=== PATIENT | male | born 2005 ===

== ENCOUNTER 2024-07-10 13:12 | Outpatient (REF) | payer MEDICAID, SELFPAY ==
--- OUTSIDE RECORDS SUMMARY | 2024-07-10 15:33 | XMS_ITS | Encounter Summary ---
Author Organization [facility] Address [address] [place] [address] Care Team Providers Care Order Control Clerk Blood Bank Name Role Phone Unavailable Primary Care Provider Unavailabl e Encounter Details Date Type Department Care Team (Latest Contact Info) Description 07/09/2024 Travel Social History Tobacco Use Types Packs/Day Years Used Date Smoking Tobacco: Never Smokeless Tobacco: Never Alcohol Use Standard Drinks/Week Comments Yes 0 (1 standard drink = 0.6 oz pur e alcohol) socially less than a year Alcohol Answer Date Recorded How often do you have a drink containing alcohol ? 0 07/09/2024 How many drinks containing a lcohol do you have on a typical day when you are drinking? 0 07/09/2024 How often do you have six or more drinks on one occasion? 0 07/09/2024 Depression Answer Date Recorded Patient Health Questionnaire-9 Score 2 07/09/2024 Patient Health Questionnaire-9 Score 2 07/09/2024 Last PHQ-9: Questionnaire Data Not on file 0 07/09/2024 Housing Stability Answer Date Recorded What is your housing situation today? I have tristianedgar borrego 07/09/[address] you li ve. Do you have problems with any of the following? None of the above 07/09/2024 Food Insecurity Answer Date Recorded Within the past 12 months, y ou worried that your food would run out before you got money to buy more: Never True 07/01/2024 Within the past 12 months,th e food you bought just didn't last and you didn't have enough money to get more: Never True Transportation Answer Date Recorded In the past 12 months, has l ack of transportation kept you from medical appts, meetings, work or from getting things needed for daily living? No 07/01/2024 Utilities Answer Date Recorded In the past 12 months, has t he electric, gas, oil or water company threatened to shut off services in your home? I am not sure 07/09/2024 Depression Answer Date Recorded Patient Health Questionnaire-2 Score 0 07/09/2024 Internet Access Answer Date Recorded Internet Access Q1 Yes 07/01/2024 Internet Access Q2 Not on file 07/01/2024 Sex and Gender Information Value Date Recorded Sex Assigned at Male 01/16/2022 10:33 AM EDT Legal Sex Male 10:33 AM EDT Gender Identity Male 01/16/2022 10:33 AM EDT Sexual Orientation Straight 01/16/2022 10 :33 AM EDT documented as of this encounter Plan of Treatment Not on file documented as of this encounter Visit Diagnoses Not on filedocumented in this encounter Additional Health Concerns Assessment Noted Time PHQ-9 Depression Total Score: 2 07/10/19 25 3:08 PM EDT documented as of this encounter
--- OUTSIDE RECORDS SUMMARY | 2024-07-10 15:33 | XMS_ITS | Encounter Summary ---
Author Organization [facility] Address [address] [place] [address] Care Team Providers Care Portfolio Architect Name Role Phone Unavailable Primary Care Provider Unavailabl e Reason for Visit * Reason Comments new patient Encounter Details Date Type Department Care Team (Late st Contact Info) Description 07/09/2024 2:00 PM EDT Office Visit [facility] [address] [place], [place] [id number] Marta Garber NP [address] [place] [address] Underweight (BMI < 18.5) (Primary Dx); Encounter for health-related screening; Screening examination for STI; Vitamin B 12 deficiency Social History Tobacco Use Types Packs/Day Years [...] is your housing situation today? I have tristian borrego 07/09/[address] you [...] AM EDT documented as of this encounter Last Filed Vital Signs Vital Sign Reading Time Taken Comments Blood Pressure 115/72 07/09/2024 2:21 PM EDT Pulse 103 07/09/2024 2:21 PM EDT Temperature 37.1 ??C (98.8 ??F) 07/09/2024 2:21 PM ED T Respiratory Rate 23 07/09/2024 2:21 PM EDT Oxygen Saturation 98% 07/09/2024 2:21 PM EDT Inhaled Oxygen Concentration - - Weight 58.3 kg (128 lb 9.6 oz) 07/09/2024 2:21 P M EDT Height 175.3 cm (5' 9 ) 07/09/2024 2:21 PM EDT Body Mass Index 18.99 07/09/2024 2:21 PM EDT documented in this encounter Plan of Treatment Scheduled Orders Name Type Priority Associated Diagnoses Orde r Schedule CBC auto differential Lab Routine Vitamin B 12 deficiency Expected: 07/09/2024 (Approximate), Expires: 07/09/2025 Vitamin B12/Folate, Serum Panel Lab Routine Vitamin B 12 deficiency Expected: 07/09/2024, Expires: 07/09/2025 Syphilis Screen Lab Routine Screening examination for STI Expected: 07/09/2024 (Approximate), Expires: 07/09/2025 Hepatitis B surface antigen, EIA Lab Routine Screening examination for STI Expected: 07/09/2024 (Approximate), Expires: 07/09/2025 Hepatitis B Surface Antibody, Qualitative Lab Routine Screening examination for STI Expected: 07/09/2024 (Approximate), Expires: 07/09/2025 Hepatitis B Core Antibody, Total Lab Routine Screening examination for STI Expected: 07/09/2024 (Approximate), Expires: 07/09/2025 Hepatitis C Antibody with Reflex to HCV, RNA, Quantitative, Real-Time PCR Lab Routine Screening examination for STI Expected: 07/09/2024 (Approximate), Expires: 07/09/2025 HIV-1/2 Antigen and Antibodies, Fourth Generation, with Reflexes Lab Routine Screening examination for STI Expected: 07/09/2024 (Approximate), Expires: 07/09/2025 Lipid Panel, Standard Lab Routine Encounter for health-related screening Expected: 07/09/2024 (Approximate), Expires: 07/09/2025 TSH W/Reflex to FT4 Lab Routine Underweight (BMI < 18.5) Expected: 07/09/2024 (Approximate), Expires: 07/09/2025 Basic Metabolic Panel Lab Routine Underweight (BMI < 18.5) Expected: 07/09/2024 (Approximate), Expires: 07/09/2025 documented as of this encounter Visit Diagnoses Diagnosis Underweight (BMI < 18.5)- Primary Encounter for health-related screening Screening examination for STI Vitamin B 12 deficiency Other B-complex deficiencies documented in this encounter Additional Health Concerns Assessment Noted Time PHQ-9 Depression Total Score: 2 07/10/19 25 3:08 PM EDT documented as of this encounter
--- OUTSIDE RECORDS SUMMARY | 2024-07-10 15:33 | XMS_ITS | Clinical Summary ---
Author Organization [facility] Address [address] [place] [address] [address] [place] [address] Care Team Providers Care Cia Agent Name Role Phone Unavailable Primary Care Provider Unavailabl e Allergies No known active allergies Medications Sodium Fluoride 1.1 % creamIndication s:Dental caries on smooth surface limited to enamel Kinder with a pea size amount of toothpaste morning and bedtime. Floss between teeth. Do not rinse. Spit out excess. 56 g 10 Active Additional Information Patient not taking.Reported on 10/30/2023 cyanocobalamin (Vitamin B-12) 100 MCG tablet Take 100 mcg by mouth in the morning. Active Active Problems Problem Noted Date Diagnosed Date Dental caries 01/12/2023 Dental abscess 01/12/2023 Encounters Date Type Department Care Team Description 07/09/2024 2:00 PM EDT Office Visit [address] [address] Marta Garber NP Underweight (BMI < 18.5) (Primary Dx); Encounter for health-related screening; Screening examination for STI; Vitamin B 12 deficiency 07/09/2024 Travel 07/01/2024 Patient Outreach [facility] [address] [place] [id number] Marta Garber NP Care Coordination (CHW outreach for SDOH housing search-LVM ) 07/01/2024 Patient Outreach [facility] [address] [place] [address] Marta Garber NP Pre-visit Planning (SDOH positive, Tobacco screening negative) 06/30/2024 Telephone [facility] [address] [place] [address] Kita Jacobo MA chart prep 05/30/2024 Population Health Risk Score [facility] ([facility]) Department [address] [place] [id number] Provider, Population Health Generic from Last 3 Months Immunizations Name Administration Dates Next Due DTaP 09/28/2008, 6,03/30/2005,01/24,2004 HPV 9-Valent 07/11/2017,09/29/2015 Hep A, ped/adol, 2 dose 03/28/2006,2005 Hep B, Adolescent or Pediatric 03/30/2005,2004,2004 HiB, unspecified 12/22/2005,01/24/2005 Hib (PRP-T) 2004 IPV 09/28/2008, 6,01/24/2005,11/24 Influenza injectable quadriv alent preservative free 06/09/2021 MMR 09/28/2008,2005 Meningococcal MCV4P [id number] 06/09/2021,09/29/19 16 Pneumococcal Conjugate PCV 13 12/22/2005 ,03/30/2005,01/24/2005,11/24 Tdap 09/29/2015 Varicella 09/28/2008,2005 Family History Medical History Relation Name Comments No Known Problems Brother Diabetes Father No Known Problems Mother No Known Problems Sister Relation Name Status Comments Brother Father Maternal Grandmother Mother Sister Social History Tobacco Use Types Packs/Day Years Used Date Smoking Tobacco: Never Smokeless Tobacco: Never Tobacco Cessation:Counseling Given: Not Answered Alcohol Use Standard Drinks/Week Comments Yes 0 [...] Orientation Straight 01/16/2022 10 :33 AM EDT Last Filed Vital Signs Vital Sign Reading [...] Mass Index 18.99 07/09/2024 2:21 PM EDT Plan of Treatment Health Maintenance Due Date Last Done Comments Chlamydia and Gonorrhea Screening 2004 Dental X-Ray: Full Mouth 2004 HIV Screening 2004 Hepatitis C Screening 2022 Dental Oral Exam 10/09/2022 04/10/2022 Dental Prophylaxis 10/09/2022 04/10/2022 COVID-19 Vaccine ( - season) 2023 Influenza Vaccine (#1) 2023 06/09/2021 Dental X-Ray: Bitewings 12/15/2023 12/13/2022 Alcohol/Substance Use Screening 07/09/2025 07/09/2024 Depression Screening 07/09/2025 07/09/2024, 07/10/19 Family Planning (PISQ) 07/09/2025 07/09/2024 SDOH Screening 07/09/2025 07/09/2024 Tobacco Screening 07/09/2025 07/09/2024 DTaP/Tdap/Td Vaccines (7 - Td or Tdap) 09/28/2025 09/29/2015, 09/28/2008, 12/22/2005, Additional history exists Zoster Vaccines (1 of 2) 2054 RSV Patients and Patients Aged 60 years or older (1 - 1-dose 75+ series) 09/22/2079 Hepatitis B Vaccines Completed 03/30/2005, 2004, 2004 HIB Vaccines Completed 12/22/2005, 10/2004, 2004 Pneumococcal Vaccine: Pediatrics (0 to 5 Years) and At-Risk Patients (6 to 49) Years) Completed 12/22/2005, 03/30/2005, 01/24/2005, Additional history exists Hepatitis A Vaccines Completed 03/28/2006, 09/22/19 06 IPV Vaccines Completed 09/28/2008, 03/19, 01/24/2005, Additional history exists MMR Vaccines Completed 09/28/2008, 2005 Varicella Vaccines Completed 09/28/2008, 2005 HPV Vaccines Completed 07/11/2017, 09/29/2015 Meningococcal Vaccine Completed 06/09/2021, 016 Fluoride Varnish Discontinued 04/10/2022 RSV under 20 months Aged Out No longe r eligible based on patient's age to complete this topic Rotavirus Vaccines Aged Out No longer eligible based on patient's age to complete this topic Procedures Procedure Name Priority Date/Time Associated Diagnosis Comments BITEWING - SINGLE RADIOGRAPHIC IMAGE Routine 12/13/2022 1:00 PM EDT Dental caries Dental abscess Full PROPHYLAXIS - ADULT Routine 023 2:30 PM EST PERIODIC ORAL EVALUATION - ESTABLISHED PATIENT Routine 04/10/2022 2:30 PM EST TOPICAL APPLICATION OF FLUORIDE VARNISH Routine 04/10/2022 2:30 PM EST from Last 3 Months or Most Recently Relevant to Health Maintenance Insurance [facility] C3 DENTAL-[facility] MEDICAID STAND CHILD
[2024-07-10 15:57] LABS: MANUAL DIFF FLAG NO
[2024-07-10 16:08] LABS: Basophils Percent Auto 0.9 % (0-2); Eosinophils Absolute Auto 0.5 X10*3/uL (0.0-0.4); Eosinophils Percent Auto 11.6 % (0-4); Hematocrit 43.6 % (42.0-52.0); Hemoglobin 14.5 g/dl (14.0-18.0); Lymphocytes Absolute Auto 1.7 X10*3/uL (1.2-4.9); Lymphocytes Percent Auto 38.7 % (20-40); Mean Corpuscular HGB Conc 33.3 g/dl (31.0-36.0); Mean Corpuscular Hemoglobin 28.4 pg (27.0-33.0); Mean Corpuscular Volume 85.3 fL (80.0-98.0); Mean Platelet Volume 9.4 fL (9.4-12.4); Monocytes Absolute Auto 0.5 X10*3/uL (0.1-1.2); Monocytes Percent Auto 11.8 % (2-11); Neutrophils Absolute Auto 1.6 x10*3/uL (2.0-8.3); Platelet Count 292 X10*3/uL (160-400); Red Blood Count 5.11 X10*6/uL (4.60-5.80); Red Cell Distribution Width 12.6 % (11.0-16.0); White Blood Count 4.3 X10*3/uL (4.8-10.8)
[2024-07-10 16:46] LABS: Anion Gap 12 (12-20); Blood Urea Nitrogen 15 mg/dL (9-16); Calcium 9.9 mg/dL (8.4-10.2); Carbon Dioxide 28 mmol/L (22-29); Chloride 105 mmol/L (96-108); Cholesterol 150 mg/dL (<200); Estimated Glomerular Filt Rate > 60; Glucose Random 90 mg/dL (60-115); HDL Cholesterol 45 mg/dL (>40); LDL Cholesterol Calculated 91 mg/dL (<100); Sodium 141 mmol/L (135-145); Triglycerides 73 mg/dL (<150)
[2024-07-10 16:48] LABS: Folate 12.2 ng/mL (> or = 4.0); Vitamin B12 250 pg/mL (200-900)
[2024-07-10 16:49] LABS: TSH reflex Free T4 1.94 uIU/mL (0.32-4.0)
[2024-07-11 03:34] LABS: Syphilis Screen Nonreactive (Nonreactive)
[2024-07-11 03:47] LABS: HBS Num1 10.75 mIU/mL (0-7.99); HBc Num1 1.62 S/CO (0.00-0.79); HBsAGNum1 0.37 S/CO (0.00-0.99); HIV AB/AG Nonreactive (Nonreactive); HIV Num 1 0.07 S/CO (0.00-0.99); Hepatitis B Surface Antigen Negative (Negative); ~HepC Num1 0.21 S/CO (0.00-0.79); ~Hepatitis C Antibody Nonreactive (Nonreactive)
[2024-07-11 04:38] LABS: HBS Num2 11.34 mIU/mL (0-7.99); HBS Num3 11.47 mIU/mL (0-7.99); ~Hepatitis B Surface Antibody GRAYZONE (Nonreactive)
[2024-07-11 04:39] LABS: HBc Num3 0.98 S/CO; Hepatitis B Core Antibody Nonreactive (Nonreactive)
== END 2024-07-10 13:13 | disposition home or self-care (01) ==
LOC: HO.HHCL 13:12
PROVIDERS: Visit Provider Nurse Practitioner
DX: Z11.3 Encounter for screening for infections with a predominantly sexual mode of transmission (principal); E53.8 Deficiency of other specified B group vitamins; Z13.9 Encounter for screening, unspecified; R63.6 Underweight
CPT/HCPCS: 36415; 80048; 80061; 82607; 82746; 84443; 85025; 86704; 86706; 86780; 86803; 87340; 87389

== ENCOUNTER 2024-07-26 14:21 | Emergency (ER) | payer MEDICAID, SELFPAY ==
--- NOTE | 2024-07-26 14:28 | ED_ITS ---
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 Patient states that he has been feeling increased stress from working and going to college. Patient states that he is not suicidal or homicidal, he would just like a note to be excused from work for some rest. Patient states that he does not want to talk to anyone about his mental health as he feels it is fine - just stressed. Patient states that he does not have any access to fire arms. Patient denies any dizziness, lightheadedness, abdominal pain, nausea, vomiting, fever, chills, blurry vision, double vision, loss of vision, chest pain, difficulty breathing, shortness of breath, back pain, night sweats, pain with urination, increased urinary frequency, increased urinary urgency, blood in his urine or stool, syncope or a near syncopal episode, recent trauma or falls, bowel incontinence, bladder incontinence, or any other complaints at this time. Relieving factors: none Exacerbating factors: none Associated symptoms: denies other symptoms Treatments prior to arrival: none Related Data Allergies Allergy/AdvReac Type Severity Reaction Status Date / Time No Known Allergies Allergy Verified 07/26/24 14:34 Review of Systems Constitutional: Constitutional: Reports no additional constitutional complaints, Denies chills, Denies fever(s) and Denies night sweats Eyes: Eyes: Reports no additional eye complaints, Denies blurry vision, Denies change in vision, Denies diplopia, Denies eye discharge, Denies loss of vision and Denies eye pain ENT: Denies dizziness Cardiovascular: Cardiovascular: Reports no additional cardiovascular complaints, Denies chest pain, Denies lightheadedness, Denies Loss of Consciousness and Denies dyspnea Respiratory: Respiratory: Reports no additional respiratory complaints and Denies dyspnea Gastrointestinal: Gastrointestinal: Reports no additional gastrointestinal co mplaints, Denies abdominal pain, Denies melena, Denies hematochezia, Denies change in bowel habits and Denies change in stool character Genitourinary: Genitourinary: Reports no additional male genitourinary complaints, Denies hematuria, Denies oliguria, Denies difficulty urinating, Denies dysuria, Denies urinary frequency, Denies urinary hesitancy, Denies urinary incontinence and Denies urinary urgency Musculoskeletal: Musculoskeletal: Reports no additional musculoskeletal complaints, Denies numbness and Denies tingling Neurologic: Denies dizziness, Denies loss of vision, Denies numbness and Denies tingling Psychiatric: Psychiatric: Reports no additional psychiatric complaints, Denies homicidal ideation and Denies suicidal ideation Endocrine: Endocrine: Reports no additional endocrine complaints Hematologic/Lymphatic: Hematologic/Lymphatic: Reports no additional hematologic/lymphatic complaints Allergic/Immunologic: Allergic/Immunologic: Reports no additional allergic/immunologic complaints PMFSH Past Medical History Attestation statement: The following information was validated with the patient. Source: old records reviewed and nursing notes reviewed Social History Social History Advance Directives: No Advance Directives Information Provided: No Do you have a plan to hurt others: No Plan Physical Exam ED Vital Signs: Vital Signs - 24 hr 07/26/24 14:30 Temperature 98.2 F Pulse Rate 74 Respiratory Rate 20 Blood Pressure 119/70 Pulse Oximetry 98 Oxygen Delivery Method Room Air BMI result Body Mass Index 19.0 Const General: cooperative, no acute distress, alert and awake Nutritional Appearance: well nourished Orientation/consciousness: patient oriented x3 [facility] Head: Yes normal to inspection and Yes atraumatic Ears: hearing grossly normal bilaterally and external ears normal General nose exam: Normal external nose present, no nasal discharge noted and no epistaxis Face and sinus: Yes normal facial exam, No abrasion and No laceration Mouth: Normal oral and palatal mucosa present, no drooling and no muffled voice Eyes General: appearance normal, both eyes and all related structures Periorbital: periorbital findings normal Eyelids: Yes eyelids normal Conjunctivae: conjunctivae normal Pupils: Equal, round and reactive pupils present EOM: EOMs intact bilaterally Neck Neck: Yes normal visual inspection, Yes full ROM and Yes no lymphadenopathy Resp Effort & Inspection: normal respiratory effort and able to speak in complete sentences Neuro General: patient oriented x3, moves all extremities and CN's II-XI intact bilaterally Cranial nerves: Yes Equal, round and reactive pupils present Cognition (Neuro): normal cognition Extrem General: Yes normal to inspection, Yes full ROM and Yes capillary refill normal Psych Appearance: grossly normal Mental Status: mental status grossly normal Affect: normal affect Attitude: cooperative Thought process: Normal thought process present Thought content: Normal thought content present Insight: Good insight present (Psych) Medical Decision Making Medical Decision Making MDM Narrative: Patient is a 18 year old assigned male at with no reported medical history presenting to the emergency department today requesting a note from work because he is stressed out. Patient's physical exam was unremarkable. I explained my physical exam findings to the patient. I answered all questions asked by the patient. I spent an extensive amount of time conversing with the patient about his current state of mind / mental health and he assured me numerous times that he is not homicidal or suicidal, he just wants an excuse to be out from work. I stressed the importance of the patient taking his medication as directed (either prescribed or as the over the counter packaging recommends). I stressed the importance of the patient following up with his primary care provider. I stressed the importance of the patient returning to the emergency department immediately if his symptoms were to worsen or if he were to develop any thoughts of hurting himself, thoughts of hurting others, dizziness, shortness of breath, difficulty breathing, chest pain, blurry vision, loss of vision, nausea, vomiting, abdominal pain, fever, chills, back pain, or any other complaints. Patient [and the patient's] verbalized agreement and understanding with this tr eatment plan and discharge. Differential Diagnosis Differential Diagnoses: The differential diagnosis associated with the presentation includes Normal examination Stress Admission/Observation Consideration of admission/observation: Escalation of care including admis joy/observation considered Patient would have been admitted to the hospital had his clinical presentation warranted hospital admission. Discharge Plan Discharge Clinical Impression: Stress, Normal physical exam Patient Disposition: Home, Self-Care Instructions: Stress (ED), Normal Exam (ED) Additional Instructions: Follow up with your primary care provider. Return to the emergency department immediately if your symptoms worsen or if you develop any dizziness, shortness of breath, difficulty breathing, chest pain, blurry vision, loss of vision, nausea, vomiting, abdominal pain, fever, chills, back pain, or any other complaints. Bessie?seguimiento?con fuentes m?dico de atenci?n primaria. Acuda inmediatamente al servicio de urgencias si glenn s?ntomas empeoran o si presenta falta de aliento, dificultad para respirar, dolor tor?cico, mareos, aturdimiento, dolor de espalda, dolor abdominal, fiebre, escalofr?os o cualquier otro s?ntoma. It is important after this visit today that you follow up with either your mental / behavioral health or primary care provider within 7 days (from today).? Return for any worsening symptoms or concerns such as thoughts of harming yourself or others. Please call 911 immediately if you feel your mental health is worsening.? Despu?s de esta visita de lorena, es importante que bessie un seguimiento con fuentes proveedor de woody mental/conductual o de atenci?n primaria en un plazo de 7 d?as (a partir de lorena). Vuelva por si empeora alg?n s?ntoma o preocupaci?n, rogelio pensamientos de hacerse da?o a s? mismo o a los dem?s. Llame inmediatamente al 911 si yuri que fuentes woody mental est? empeorando. National Suicide and Crisis Lifeline: Available 24 hours a day, 7 days a week, 365 days a year Dial 278 with any telephone to speak to someone immediately [facility] (Mental / Behavioral health therapist: [address] [place] [address] [facility] at [facility]: [address] [place] [address] Open from 10am - 12pm (walk ins welcome) [facility]: [address] [place] [address] Walk in hours from 10am - 12pm Behavioral health Network: [address] [place] [id number] [address] [place] [id number] Sunday through Sunday 8am - 8pm Sunday and Sunday 9am - 5pm Please see the information below about our Patient Portal. If you are not yet enrolled in the [facility] Patient Portal, you will receive an enrollment email invitation following your visit to any [facility] care setting. You may also self-enroll in the Patient Portal by visiting our website: [email or web address] The following information is required to access the Patient Portal: - Your [facility] Medical Record Number - Your personal home email address (must match what is in your electronic medical record, Registration staff can assist with this) - Name - Date of Capabilities of the Patient Portal: - Message some providers - View upcoming appointments - Access your health summary, medical history, and visit history - View current conditions and allergies - View procedure and lab results - View your medications, including guidelines, side effects, and precautions - Complete pre-appointment questionnaires requested by your provider - Ready summary reports of your office visits and procedures To access the Patient Portal Mobile Bart, follow these directions: - Search [employer] in the Bart Store or [employer] Store - Download the Bart - Search for [facility] - Enter your login/password Portal del paciente Si usted no esta inscrito en el portal de pacientes de [facility], recibira danish invitacion de inscripcion despues de fuentes visita al [facility] o al [facility] via correo electronico. Tambien puede inscribirse voluntariamente en el portal de pacientes visitando nuestra pagina web: [email or web address] La siguiente informacion sera requerida para acceder al portal: - Fuentes bayron de historia medica de [facility] - Fuentes direccion de correo electronico personal - Nombre - Fecha de nacimiento Capacidades: Las siguientes capacidades estan disponibles en el portal de pacientes: - Enviar mensajes a algunos doctores - Verificar proximas citas - Acceso a fuentes historial de woody, registro medico e historial de visitas - Luz Marina las condiciones actuales y alergias luz marina procedimientos y resultados del laboratorio - Luz Marina glenn medicamentos, incluyendo las pautas - Efectos secundarios y precauciones - Completar o llenar formularios / cuestionarios de - Citas solicitadas por fuentes doctor - Leer los resumenes de reportes medicos de glenn visitas y procedimientos Rogelio acceder a la aplicacion movil: - Busque registracija vozilaealth en la Bart Store o [employer] Store - Descargue la aplicacion - [facility] - Ingrese fuentes nombre de usuario / Contrasena Referrals: [facility] Family Medicine [Provider Group] (Call to establish and follow up with a primary care provider. If you already have a primary care provider, please follow up with them. Llame para establecer y hacer un seguimiento con un proveedor de atenci?n primaria. Si ya tiene un proveedor de atenci?n primaria, bessie un seguimiento con ?l.) [facility] (Call to establish and follow up with a primary care provider. If you already have a primary care provider, please follow up with them. Llame para establecer y hacer un seguimiento con un proveedor de atenci?n primaria. Si ya tiene un proveedor de atenci?n primaria, bessie un seguimiento con ?l.) [facility] Primary Care, [place] [Provider Group] (Call to establish and follow up with a primary care provider. If you already have a primary care provider, please follow up with them. Llame para establecer y hacer un seguimiento con un proveedor de atenci?n primaria. Si ya tiene un proveedor de atenci?n primaria, bessie un seguimiento con ?l.) [facility] Primary Care, [facility] [Provider Group] (Call to establish and follow up with a primary care provider. If you already have a primary care provider, please follow up with them. Llame para establecer y hacer un seguimiento con un proveedor de atenci?n primaria. Si ya tiene un proveedor de atenci?n primaria, bessie un seguimiento con ?l.) [facility] Primary Care, [facility] [Provider Group] (Call to establish and follow up with a primary care provider. If you already have a primary care provider, please follow up with them. Llame para establecer y hacer un seguimiento con un proveedor de atenci?n primaria. Si ya tiene un proveedor de atenci?n primaria, bessie un seguimiento con ?l.) Stand Alone Forms: Work/School Release Discharge Date/Time: 07/26/24 14:58 Print Language: Burmese
[2024-07-26 14:30] VITALS: BP 119/70; PULSE 74; RESP 20; TEMP 36.8; O2SAT 98; BMI 19.0
== END 2024-07-26 14:58 | disposition home or self-care (01) ==
LOC: HO.ED 14:41
PROVIDERS: Emergency Provider Emergency Medicine; PCP Family Medicine
DX: F43.9 Reaction to severe stress, unspecified (principal)
CPT/HCPCS: 99281; 99282